=== PATIENT | female | born 1990 | race Caucasian/White ===

== ENCOUNTER 2017-01-12 17:27 | Emergency (ER) | payer OTHER ==
[~2017-01-12] VITALS: Ht 162.6 cm; Wt 54.9 kg
[2017-01-12] MEDS ORDERED: TYLENOL EXTRA500 MG ORAL (18:08)
[2017-01-12 18:11] VITALS: BP 124/78
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
== END 2017-01-12 18:11 | disposition home or self-care (01) ==
LOC: EMR 18:00
DX: S09.8XXA Other specified injuries of head, initial encounter (principal); S06.0X0A Concussion without loss of consciousness, initial encounter; W22.8XXA Striking against or struck by other objects, initial encounter; Y93.18 Activity, surfing, windsurfing and boogie boarding; Y92.89 Other specified places as the place of occurrence of the external cause
CPT/HCPCS: 99283